=== PATIENT | female | born 1965 | race Caucasian/White ===

== ENCOUNTER 2017-10-09 14:47 | Emergency (ER) | payer MEDICAID, OTHER ==
[~2017-10-09] VITALS: Ht 170.2 cm; Wt 158.8 kg
[2017-10-09 15:07] VITALS: BP 146/69
== END 2017-10-09 15:30 | disposition home or self-care (01) ==
LOC: ER 14:58
DX: J20.9 Acute bronchitis, unspecified (principal); F17.210 Nicotine dependence, cigarettes, uncomplicated; Z90.49 Acquired absence of other specified parts of digestive tract; Z90.89 Acquired absence of other organs